=== PATIENT | female | born 1965 | race African-American/Black ===

== ENCOUNTER 2017-08-16 06:19 | Day surgery (SDC) | payer BC, SELFPAY ==
--- NOTE | 2017-08-15 22:55 | Pre-Procedure Note/Attestation ---
Pre-Procedure Note/Attestation Complete Prior to Procedure Planned Procedure: right - Removal of Cataract and placement of intraocular lens, right eye Procedure Narrative: Removal of cataract and placement of intraocular lens, right eye Indications for Procedure Pre-Operative Diagnosis: Cataract, combined, right eye Attestation I attest that I discussed the nature of the procedure; its benefits; risks and complications; and alternatives (and the risks and benefits of such alternatives ), prior to the procedure, with the patient (or the patient's legal indirect sales representative). I attest that, if there was a reasonable possibility of needing a blood transfusion, the patient (or the patient's legal indirect sales representative) was given the [place] [employer] [facility] standardized written summary, pursuant to the [place] Blood Safety Act ([place] Health and Safety Code # 1645, as amended). I attest that I re-evaluated the patient just prior to the surgery and that there has been no change in the patient's H&P, except as documented below: Grover Bernstein MD Aug 15, 2017 22:54
[~2017-08-16] VITALS: Ht 162.6 cm; Wt 99.8 kg
[2017-08-16] VITALS (9 sets, daily range): BP systolic 135–149; BP diastolic 77–86
[~2017-08-16 06:19] MED LIST: IBUPROFEN600 MG ORAL; NEURONTIN300 MG ORAL; PAXIL40 MG ORAL; PHENTERMINE H37.5 M1 PO; Pred Forte 1% Opth Susp 1ml RIGHT EYE ONE
[2017-08-16] MEDS: Tropicamide 1% Opth 15ml Soln RIGHT EYE SCH ×3 (07:09→07:23)
[2017-08-16] MEDS: Vigamox Opth Soln 3ml RIGHT EYE SCH ×3 (07:09→07:23)
[2017-08-16] MEDS: Cyclopentolate 1% Opth Sol 2ml RIGHT EYE SCH ×3 (07:09→07:23)
[2017-08-16] MEDS: Phenylephrine 10% Opth Soln 5ml RIGHT EYE SCH ×3 (07:09→07:22)
[2017-08-16] MEDS: Akten 3.5% 1ml Btl RIGHT EYE SCH ×3 (07:09→07:23)
[2017-08-16] MEDS ORDERED: Pred Forte 1% Opth Susp 1ml ONE ×2 (07:19→09:13)
[2017-08-16] MEDS ORDERED: GLIPIZIDE5 MG ORAL (07:21)
[2017-08-16] MEDS ORDERED: Lidocaine 4% Amp ONE (09:12)
[2017-08-16] MEDS ORDERED: EPINEPHrine 1mg/1ml Amp ONE (09:12)
[2017-08-16] MEDS ORDERED: Carbachol 0.01% Op Soln 1.5ml vial ONE (09:13)
[2017-08-16] MEDS ORDERED: Maxitrol Opth Oint 3.5gm ONE (09:13)
[2017-08-16] MEDS ORDERED: Fluorescein Strips ONE (09:13)
[2017-08-16] MEDS ORDERED: Lidocaine 1% MPF 10mg/ml 5ml ONE (09:13)
[2017-08-16] MEDS ORDERED: BSS 500ml btl ONE (09:14)
[2017-08-16] MEDS ORDERED: Dexamethasone 4mg/ml vial ONE (09:14)
[2017-08-16] MEDS ORDERED: Tetracaine 0.5% Opth 4ml Soln ONE (09:15)
[2017-08-16] MEDS ORDERED: Povidone-Iodine 5% opth solution ONE (09:15)
[2017-08-16] MEDS ORDERED: BSS 15ml BTL ONE (09:15)
[2017-08-16] MEDS ORDERED: Sodium Hyaluronate 10 mg/ml 0.85ml ONE (09:16)
[2017-08-16] MEDS ORDERED: Midazolam 2mg/2ml Inj ONE (09:30)
[2017-08-16] MEDS ORDERED: fentaNYL 100 mcg/2 mL IV ONE (09:30)
[2017-08-16] MEDS ORDERED: LR 1000ml ONE (09:30)
[2017-08-16] MEDS ORDERED: Propofol 200mg/20ml IV ONE (09:30)
--- NOTE | 2017-08-16 10:39 | Discharge Instructions ---
Discharge Instructions Discharge Instructions Follow Up Orders Wear shield at all times except to place eye drops Continue preop eye drops Followup in Dr Bernstein's office tomorrow at 2:30 PM For Congestive Heart Failure Reminder Report to your physician any weight gain of 5 pounds or more in one week. Grover Bernstein MD Aug 16, 2017 10:39
--- NOTE | 2017-08-16 10:43 | Brief Operative Note ---
Immediate Post Operative Note Operative Note Pre-op Diagnosis: Cataract, combined, right eye Procedure: Phaco PC IOL, OD Post-op Diagnosis: same as pre-op Surgeon: Ralph Bernstein MD Preboarder: none Anesthesia: local, MAC Specimen: none Complications: none Fluids: as noted Implant(s) used?: Yes - tecnis [id number] 11.0 Grover Bernstein MD Aug 16, 2017 10:43
--- NOTE | 2017-08-17 12:30 | Operative Note - Dictated ---
DATE OF OPERATION: 08/16/2017 SURGEON: Grover Bernstein M.D. 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 ANESTHESIOLOGIST: Jade Diaz. ANESTHESIA: Local/standby/monitored anesthesia care. PREOPERATIVE DIAGNOSIS: Combined cataract, right eye. POSTOPERATIVE DIAGNOSIS: Combined cataract, right eye. PROCEDURE: 1. Phacoemulsification of cataract, right eye. 2. Placement of posterior chamber intraocular lens, right eye. SPECIMENS: None. COMPLICATIONS: None. INDICATIONS FOR SURGERY: The patient has had progressive decrease in the visual acuity in the right eye secondary to cataract. The patient understands the risks of surgery including infection, bleeding, need for further surgery, loss of vision, no improvement in vision, loss of the eye, loss of life, glaucoma, retinal detachment, and understands these risks and elects to proceed with surgery. FINDINGS: The patient had a +2 to 3 central anterior subcapsular cataract as well as a +1 to 2 nuclear sclerotic cataract. OPERATIVE NOTE: After informed consent was obtained, the patient was brought into the operating room and placed in the supine position. Cardiac and respiratory monitors were attached. A time-out was performed and all criteria were met and everyone in the room agreed. The right eye was then draped and prepped in sterile manner for ocular surgery. A lid speculum was placed in the eye. A 1% lidocaine preservative-free was injected at the approximately 9 o'clock limbus. A conjunctiva peritomy from approximately 8:30 to 9:30 was made and dissected posteriorly. Hemostasis was maintained with bipolar cautery. A 2.6 mm limbal incision was made centered at approximately 9 o'clock and dissected anteriorly. A paracentesis was made at approximately 12 o'clock and Shugarcaine was injected into the anterior chamber followed by Healon. The anterior chamber was then entered using a 2.8 mm keratome through the limbal incision. An anterior capsulorrhexis was then performed. Hydrodissection and hydrodelineation of the lens was then performed. The lens was then phacoemulsified using a divide and conquer four-quadrant technique. The residual cortical material was then aspirated. The lens was taken from its package, placed into the cartridge and the tip of the cartridge was placed through the limbal incision. The lens was injected into the capsular bag and centered nicely with a [place] hook. Healon was aspirated from the anterior chamber and capsular bag. The lens was checked and both haptics and optic were in the capsular bag. The lens was aligned along the 3 to 9 o'clock meridian. One 10-0 nylon interrupted suture was then placed through the limbal incision. All wounds were checked and found to be watertight. In addition, the paracentesis was hydrated and closed. The conjunctiva was then closed with forceps cautery. The lid speculum and drapes were removed from the eye and a drop of Betadine was placed on the ocular surface was irrigated. After the lid speculum and drapes were removed from the eye, also ciprofloxacin and Pred Forte were applied to the eye followed by Maxitrol ointment and shield. The patient tolerated the procedure well and left the operating room awake, alert, and in stable condition. Grover Bernstein M.D. DR: BEE JOB#: [id number] CC:
== END 2017-08-16 12:25 | disposition home or self-care (01) ==
LOC: SUR 06:19
DX: H25.031 Anterior subcapsular polar age-related cataract, right eye (principal); H25.11 Age-related nuclear cataract, right eye; E11.9 Type 2 diabetes mellitus without complications; Z98.84 Bariatric surgery status; Z83.3 Family history of diabetes mellitus; Z82.49 Family history of ischemic heart disease and other diseases of the circulatory system
CPT/HCPCS: 36415; 66984; 82962; 84703; J0171; J1100; J2250; J2704; J3010; J7120; V2632